=== PATIENT | female | born 1980 | race American Indian/Alaskan Native ===

== ENCOUNTER 2018-01-19 20:24 | Outpatient (CLI) | payer SELFPAY | END 2018-01-19 20:25 | disposition EMS.NT | LOC: EMS 20:24 | PROVIDERS: ATTEND Surgery | DX: M25.522 Pain in left elbow (principal); V43.92XA Unspecified car occupant injured in collision with other type car in traffic accident, initial encounter; Y92.413 State road as the place of occurrence of the external cause ==